=== PATIENT | male | born 1985 | race Caucasian/White ===

== ENCOUNTER 2024-09-16 11:05 | Emergency (ER) | payer MEDICAID ==
[~2024-09-16] VITALS: Ht 172.7 cm; Wt 73.0 kg
[2024-09-16 11:19] VITALS: O2SAT 100
[2024-09-16] MEDS: FLUORESCEIN SODIUM 1MG/STRIP BOTHEYE ONE (12:45)
[2024-09-16] MEDS: TETRACAINE 0.5% OPHTH DROPS 4ML BOTHEYE ONE (12:45)
[2024-09-16] MEDS: LACTATED RINGERS 1,000 ML IV STA (13:22)
[2024-09-16] MEDS ORDERED: PRED5DRO22 BOTHEYE (15:09)
[2024-09-16] MEDS ORDERED: CIPR2.5D20 EACHEYE (15:09)
[2024-09-16 15:31] VITALS: BP 118/72; PULSE 72; RESP 20; TEMP 36.8; O2SAT 100
== END 2024-09-16 15:32 | disposition home or self-care (01) ==
LOC: ER 11:05
DX: T15.92XA Foreign body on external eye, part unspecified, left eye, initial encounter (principal); T15.91XA Foreign body on external eye, part unspecified, right eye, initial encounter; H40.20X0 Unspecified primary angle-closure glaucoma, stage unspecified; H20.9 Unspecified iridocyclitis; H16.9 Unspecified keratitis; H44.003 Unspecified purulent endophthalmitis, bilateral; W44.9XXA Unspecified foreign body entering into or through a natural orifice, initial encounter; Y93.89 Activity, other specified; Y92.89 Other specified places as the place of occurrence of the external cause; Y99.8 Other external cause status
CPT/HCPCS: 99283; 96360; J7120